=== PATIENT | male | born 1955 ===

== ENCOUNTER 2020-03-02 07:38 | Outpatient (CLI) | payer MEDICARE ==
--- NOTE | 2020-03-02 10:02 | CT ---
CT ABDOMEN AND PELVIS WITH AND WITHOUT IV CONTRAST: HISTORY: Gross hematuria. Non-Hodgkin's lymphoma. The patient has had a part of the left lower lobe of the l britton removed. FINDINGS: There are chronic changes in the lower lung cary. No calcified gallstones are seen. The liver, sp gideon, pancreas, and adrenal glands are normal. No calculi are seen in the kidneys, ureters, or the urinary bladder. No hydroureteral nephrosis is n oted on either side. There is a 1.2 cm exophytic cortical cyst arising from the right kidney. No en hancing renal masses are seen. There is normal contrast excretion into the ureters and urinary bladd er. The bladder wall is thickened. The prostate is enlarged. There is a small filling defect in th e upper-mid calyx of the left kidney seen only on the coronal reconstructed delayed images. No free air, free fluid, or lymphadenopathy is seen in the abdomen or pelvis. The small bowel loops are not abnormally dilated. A normal-appearing appendix is present. There are vascular calcificatio ns without evidence of aneurysmal dilatation of the abdominal aorta. There are degenerative changes in the spine. No osteolytic or osteoblastic lesions are seen. There is mild colonic diverticulosis. There is a fat-containing umbilical hernia and there are small fat-containing bilateral inguinal he rniae, right larger than left. IMPRESSION: 1. No CT evidence of urinary tract calculi or obstruction. 2. Right renal cyst. 3. Probable small filling defect in a left renal calyx which could represent a mass. 4. Prostatic enlargement. 5. Urinary bladder wall thickening. 6. Mild colonic diverticulosis. POS: OFF
== END 2020-03-02 07:39 | disposition home or self-care (01) ==
LOC: BICCT 07:38
PROVIDERS: ATTEND Urology
DX: R31.0 Gross hematuria (principal); N28.1 Cyst of kidney, acquired; N40.0 Benign prostatic hyperplasia without lower urinary tract symptoms; K57.30 Diverticulosis of large intestine without perforation or abscess without bleeding; N32.89 Other specified disorders of bladder
CPT/HCPCS: 74178; 82565